=== PATIENT | male | born 1985 | race African-American/Black ===

== ENCOUNTER 2017-04-24 06:03 | Inpatient (IN) | payer OTHER ==
[~2017-04-24] VITALS: Ht 182.9 cm; Wt 111.5 kg
[2017-04-24] VITALS (10 sets, daily range): BP systolic 125–161; BP diastolic 70–102
[~2017-04-24 06:03] MED LIST: CARI350 PO; CeFAZolin 2 GM/DEXTROSE 50 ML IV ONE; DEXAMETHASONE SOD PHOS 4 MG/ML VIAL IVP ONE; FentaNYL CITRATE-PF 100 MCG/2 ML VIAL IVP ONE; GLYCOPYRROLATE 0.2 MG/ML VIAL IM ONE; HYDR-305 PO; KETAMINE HCL 50 MG/ML 10 ML VIAL IVP ONE; LIDOCAINE HCL/PF 2% 5 ML VIAL IM ONE; METOCLOPRAMIDE HCL 5 MG/ML 2 ML VIAL IVP ONE; MIDAZOLAM HCL 2 MG/2 ML VIAL IVP ONE; NEOSTIGMINE METHYLSULFATE 1 MG/ML 10 ML VIAL IVP ONE; ONDANSETRON HCL 4 MG/2 ML VIAL IVP ONE; PROPOFOL 1% 20 ML VIAL IVP ONE; RINGERS SOLUTION,LACTATED 1,000 ML IV ONE; ROCURONIUM BROMIDE 10 MG/ML 5 ML VIAL IVP ONE; SUCCINYLCHOLINE CHLORIDE 20 MG/ML 10 ML VIAL IVP ONE
[2017-04-24] MEDS ORDERED: SODIUM CHLORIDE 0.9% 10 ML ONE (06:44)
[2017-04-24] MEDS ORDERED: SODIUM CHLORIDE 0.9% 0 ML IV ONE (06:45)
[2017-04-24] MEDS ORDERED: CeFAZolin 2 GM/DEXTROSE 50 ML IV ONE (07:00)
[2017-04-24] MEDS ORDERED: RINGERS SOLUTION,LACTATED 1,000 ML IV SCH (07:00)
[2017-04-24] MEDS ORDERED: PROPOFOL IV ONE (07:13)
[2017-04-24] MEDS ORDERED: ISO OSM IV ONE (07:13)
[2017-04-24] MEDS ORDERED: GELATIN SPONGE,ABSORBABLE 100 MM TP ONE (08:10)
[2017-04-24] MEDS: GELATIN SPONGE,ABSORBABLE 100 MM TP ONE ×2 (08:20→08:26)
[2017-04-24] MEDS: THROMBIN, BOVINE 20000 UNITS/VIAL POWDER TP ONE ×2 (08:20→08:26)
[2017-04-24] MEDS: BACITRACIN 50,000 UNITS/VIAL ONE ×2 (08:20→08:25)
[2017-04-24] MEDS ORDERED: DEXTROSE 5%-0.45% SODIUM CHL 1,000 ML IV PRN (09:41)
[2017-04-24] MEDS ORDERED: HYDROmorphone HCL 50 MG/NS/PF 100 ML IV PRN (09:41)
[2017-04-24] MEDS ORDERED: ONDANSETRON HCL 4 MG/2 ML VIAL IVP PRN ×2 (09:45→10:45)
[2017-04-24] MEDS ORDERED: NALOXONE HCL 0.4 MG/ML VIAL IVP PRN (09:45)
[2017-04-24] MEDS: ACETAMINOPHEN 1000 MG/ISO-OSM 100 ML IV SCH ×3 (09:45→21:53)
[2017-04-24] MEDS ORDERED: MEPERIDINE-PF 25 MG/ML SYRINGE IVP PRN (09:45)
[2017-04-24] MEDS ORDERED: HYDROmorphone 2 MG/ML SYRINGE IVP PRN (09:45)
[2017-04-24] MEDS ORDERED: METOCLOPRAMIDE HCL 5 MG/ML 2 ML VIAL IVP PRN (09:45)
[2017-04-24] MEDS ORDERED: ONDANSETRON HCL 4 MG/2 ML VIAL IM PRN (09:45)
[2017-04-24] MEDS ORDERED: NALOXONE HCL 0.4 MG/ML VIAL IM PRN (09:45)
[2017-04-24] MEDS ORDERED: PROMETHAZINE HCL 25 MG/ML VIAL IM PRN (09:45)
[2017-04-24] MEDS ORDERED: ROCURONIUM BROMIDE 10 MG/ML 5 ML VIAL ONE (09:52)
[2017-04-24] MEDS ORDERED: BENZOCAINE/MENTHOL LOZENGE [8 LOZENGES/PACKET] PO PRN (10:45)
[2017-04-24] MEDS ORDERED: MAG HYDROX/AL HYDROX/SIMETH 30 ML SUSP UDCUP PO PRN (10:45)
[2017-04-24] MEDS ORDERED: ACETAMINOPHEN 650 MG/20.3 ML SOLUTION UDCUP PO PRN (11:00)
[2017-04-24] MEDS ORDERED: LABETALOL HCL 5 MG/ML 20 ML VIAL IVP ONE ×2 (11:01→11:30)
[2017-04-24] MEDS ORDERED: FentaNYL CITRATE-PF 100 MCG/2 ML VIAL ONE ×2 (11:04→12:00)
[2017-04-24] MEDS: FentaNYL CITRATE-PF 100 MCG/2 ML VIAL IVP PRN ×4 (11:12→12:17)
[2017-04-24] MEDS ORDERED: ACETAMINOPHEN 1000 MG/ISO-OSM 100 ML IV SCH (11:15)
[2017-04-24] MEDS: RINGERS SOLUTION,LACTATED 1,000 ML IV SCH (12:43)
[2017-04-24] MEDS ORDERED: HYDROmorphone 2 MG/ML SYRINGE ONE (13:09)
[2017-04-24] MEDS: HYDROmorphone 2 MG/ML SYRINGE IVP PRN ×5 (13:39→22:10)
[2017-04-24] MEDS: CeFAZolin 1 GM/DEXTROSE 50 ML IV SCH (15:40)
[2017-04-24] MEDS: CYCLOBENZAPRINE HCL 10 MG TABLET PO SCH ×2 (16:59→21:58)
[2017-04-24] MEDS ORDERED: OXYGEN THERAPY IH SCH (20:00)
[2017-04-24] MEDS ORDERED: CARISOPRODOL 350 MG TABLET PO SCH (21:00)
[2017-04-25] VITALS (12 sets, daily range): BP systolic 127–150; BP diastolic 50–96
[2017-04-25] MEDS: HYDROmorphone 2 MG/ML SYRINGE IVP PRN ×9 (00:28→21:45)
[2017-04-25] MEDS: CeFAZolin 1 GM/DEXTROSE 50 ML IV SCH (00:47)
[2017-04-25] MEDS: OXYGEN THERAPY IH SCH ×3 (00:48→20:00)
[2017-04-25] MEDS: ACETAMINOPHEN 1000 MG/ISO-OSM 100 ML IV SCH ×2 (04:43→08:47)
[2017-04-25] MEDS: RINGERS SOLUTION,LACTATED 1,000 ML IV SCH ×2 (05:18→13:40)
[2017-04-25 05:43] LABS: BASOPHILS % (AUTO) 0.1 % (0.0-2.0); EOSINOPHILS % (AUTO) 0.2 % (1.0-6.0); HEMATOCRIT 42.5 % (41-53); HEMOGLOBIN 14.2 g/dL (13.5-17.5); LYMPHOCYTES # (AUTO) 1.8 K/uL (1.0-4.8); LYMPHOCYTES % (AUTO) 12.5 % (22.0-44.0); MEAN CORPUSCULAR HEMOGLOBIN 27.4 pg (26.0-34.0); MEAN CORPUSCULAR HGB CONC 33.3 G/dL (31.0-37.0); MEAN CORPUSCULAR VOLUME 82 fL (80-100); MONOCYTES # (AUTO) 1.1 K/uL (0.1-1.0); MONOCYTES % (AUTO) 7.9 % (2.0-9.0); NEUTROPHILS # (AUTO) 11.2 K/uL (1.8-7.7); NEUTROPHILS % (AUTO) 79.3 % (40.0-70.0); PLATELET COUNT (AUTO) 333 K/uL (150-450); RED BLOOD CELL COUNT(AUTO) 5.18 MIL/uL (4.50-5.90); RED CELL DISTRIBUTION WIDTH 14.4 % (11.5-14.5); WHITE BLOOD COUNT (AUTO) 14.2 K/uL (4.5-11.0)
[2017-04-25 05:58] LABS: ALANINE AMINOTRANSFERASE 52 U/L (12-78); ANION GAP 10 mmol/L (8-16); ASPARTATE AMINOTRANSFERASE 21 U/L (15-37); BILIRUBIN,TOTAL 0.7 mg/dL (0.1-1.0); CALCIUM, TOTAL 9.4 mg/dL (8.8-10.5); CARBON DIOXIDE 26 mmol/L (22-29); CHLORIDE 102 mmol/L (98-107); CREATININE 0.88 mg/dL (0.60-1.30); GLOMERULAR FILTR. RATE CALC > 60 mL/min (>60); PHOSPHORUS 4.9 mg/dL (2.5-4.9); POTASSIUM 3.9 mmol/L (3.5-5.1); SODIUM SERUM 138 mmol/L (136-145); TOTAL PROTEIN, SERUM 7.4 g/dL (6.4-8.2); UREA NITROGEN, BLOOD 6 mg/dL (7-18)
[2017-04-25] MEDS: DOCUSATE SODIUM 100 MG CAPSULE PO SCH ×2 (08:46→21:07)
[2017-04-25] MEDS: BISACODYL 5 MG EC TABLET PO SCH (08:46)
[2017-04-25] MEDS: CYCLOBENZAPRINE HCL 10 MG TABLET PO SCH ×3 (08:47→21:07)
[2017-04-25] MEDS: OxyCODONE HCL/ACETAMINOPHEN 10-325 MG TABLET PO PRN ×2 (17:52→23:16)
[2017-04-26] MEDS: HYDROmorphone 2 MG/ML SYRINGE IVP PRN ×3 (02:35→06:42)
[2017-04-26] MEDS: RINGERS SOLUTION,LACTATED 1,000 ML IV SCH (03:00)
[2017-04-26 03:17] VITALS: BP 140/80
[2017-04-26] MEDS: OxyCODONE HCL/ACETAMINOPHEN 10-325 MG TABLET PO PRN ×2 (04:15→08:28)
[2017-04-26 08:00] VITALS: BP 151/85
[2017-04-26] MEDS: OXYGEN THERAPY IH SCH (08:00)
[2017-04-26] MEDS: DOCUSATE SODIUM 100 MG CAPSULE PO SCH (08:27)
[2017-04-26] MEDS: BISACODYL 5 MG EC TABLET PO SCH (08:27)
[2017-04-26] MEDS: CYCLOBENZAPRINE HCL 10 MG TABLET PO SCH (08:28)
[2017-04-26] MEDS ORDERED: PERCT10 PO ×2 (09:07→09:10)
[2017-04-26] MEDS ORDERED: CARI350 PO (09:09)
[2017-04-26] MEDS ORDERED: OMEP20 PO (09:17)
== END 2017-04-26 10:55 | disposition home or self-care (01) | DRG 473 ==
LOC: 4E 06:03 → ICU 09:52 → 4E 04-25 10:55
PROVIDERS: ADMIT Neurological Surgery; ATTEND Neurological Surgery
PROC: 0RT30ZZ Resection of Cervical Vertebral Disc, Open Approach (ICD-10-PCS; 2017-04-24)
PROC: 0RG20A0 Fusion of 2 or more Cervical Vertebral Joints with Interbody Fusion Device, Anterior Approach, Anterior Column, Open Approach (ICD-10-PCS; principal; 2017-04-24 08:20)
DX: M50.11 Cervical disc disorder with radiculopathy, high cervical region (principal); I10 Essential (primary) hypertension; F12.90 Cannabis use, unspecified, uncomplicated; G47.33 Obstructive sleep apnea (adult) (pediatric); M53.2X2 Spinal instabilities, cervical region; M50.122 Cervical disc disorder at C5-C6 level with radiculopathy; M50.121 Cervical disc disorder at C4-C5 level with radiculopathy; Z88.5 Allergy status to narcotic agent; Z87.828 Personal history of other (healed) physical injury and trauma; Z87.81 Personal history of (healed) traumatic fracture; Z79.899 Other long term (current) drug therapy; Z79.1 Long term (current) use of non-steroidal anti-inflammatories (NSAID)
CPT/HCPCS: 83735; 84100; 86850; 86900; 86901; 87081; 97161; 97166; 97530; 97535; C1713; J0131; J0330; J0690; J1100; J1170; J2250; J2405; J2704; J2765; J3010; J3490; J7050; J7120